=== PATIENT | male | born 1945 ===

== ENCOUNTER 2023-11-02 03:40 | Outpatient (CLI) | payer MEDICARE, BC, SELFPAY ==
[2023-11-02 10:06] LABS: Abs Immature Grans 0.02 10^3/uL (0.0-0.06); Absolute Eosinophil Count 0.14 10^3/uL (0.0-0.7); Absolute Lymphocyte Count 1.36 10^3/uL (1.2-3.4); Absolute Monocyte Count 0.93 10^3/uL (0.1-0.8); Basophils % 1.3; Eosinophils % 1.8; HCT 35.6 % (40.0-50.0); HGB 12.3 g/dL (13.5-17.5); Immature Grans % 0.3; Lymphocytes % 17.3; MCH 32.4 pg (27.0-33.0); MCHC 34.6 % (32.0-36.0); MCV 94 fL (80-95); MPV 8.8 fL (8.0-11.0); Monocytes % 11.8; Neutrophils % 67.5; Platelet Count 302 10^3/uL (130-400); RDW 13.2 % (11.8-14.1); RDW-SD 45.1 fL; WBC 7.85 10^3/uL (4.4-10.8)
[2023-11-02 10:11] LABS: ESR 6 mm/hr (0-20)
== END 2023-11-02 03:41 | disposition home or self-care (01) ==
PROVIDERS: Visit Provider Family Medicine
DX: D64.9 Anemia, unspecified (principal)
CPT/HCPCS: 36415; 85652; 85025

== ENCOUNTER 2023-11-23 03:55 | Outpatient (CLI) | payer MEDICARE, BC, SELFPAY ==
[2023-11-23 16:28] LABS: Abs Immature Grans 0.02 10^3/uL (0.0-0.06); Absolute Basophil Count 0.08 10^3/uL (0.0-0.2); Absolute Eosinophil Count 0.09 10^3/uL (0.0-0.7); Absolute Lymphocyte Count 1.69 10^3/uL (1.2-3.4); Absolute Monocyte Count 0.87 10^3/uL (0.1-0.8); Absolute Neutrophil Count 4.26 10^3/uL (1.2-6.7); Basophils % 1.1; Eosinophils % 1.3; HCT 33.4 % (40.0-50.0); HGB 11.5 g/dL (13.5-17.5); Immature Grans % 0.3; Lymphocytes % 24.1; MCH 32.9 pg (27.0-33.0); MCHC 34.4 % (32.0-36.0); MCV 95 fL (80-95); MPV 9.1 fL (8.0-11.0); Monocytes % 12.4; Neutrophils % 60.8; Platelet Count 278 10^3/uL (130-400); RDW 13.5 % (11.8-14.1); RDW-SD 47.4 fL; WBC 7.01 10^3/uL (4.4-10.8)
[2023-11-23 17:09] LABS: ALT 28 U/L (16-63); AST 36 U/L (15-37); Albumin 3.6 g/dL (3.4-5.0); Alkaline Phosphatase 86 U/L (46-116); Anion Gap 7.1 mmol/L (3-11); BUN 8 mg/dL (7-18); Bilirubin, Total 0.7 mg/dL (0.2-1.0); CO2 27.9 mmol/L (21.0-32.0); CREATININE 1.1 mg/dL (0.70-1.30); Chloride 104 mmol/L (98-107); Estimated GFR 68.29 (mL/min/1.73m2); Folate 14.8 ng/mL (8.6-20.0); Glucose 103 mg/dL (74-106); Potassium 4.5 mmol/L (3.5-5.1); Sodium 139 mmol/L (136-145); Total Protein 7.4 g/dL (6.4-8.2); Vitamin B12 352 pg/mL (193-986)
[2023-11-23 17:21] LABS: LDH 265 U/L (85-227)
[2023-11-24 10:03] LABS: Reticulocyte 1.7 % (0.5-2.4)
[2023-11-27 09:15] LABS: Haptoglobin 159 mg/dL (32-197); IgA 533 mg/dL (85-499); IgG 1237 mg/dL (610-1616); IgM 83 mg/dL (35-242); Kappa Free Light Chain 6.28 mg/dL (0.33-1.94); Lambda Free Light Chain 2.94 mg/dL (0.57-2.63)
[2023-11-27 12:18] LABS: Albumin 55.2 % (55.8-66.1); Albumin g/dL 3.9 g/dL (3.6-5.2); Total Protein 7.1 g/dL (6.3-8.2)
[2023-11-27 13:48] LABS: Erythropoietin 9.4 mIU/mL (2.6 - 18.5)
== END 2023-11-23 03:56 | disposition home or self-care (01) ==
PROVIDERS: Visit Provider Internal Medicine Hematology & Oncology
DX: D64.9 Anemia, unspecified (principal)
CPT/HCPCS: 36415; 80053; 82668; 82784; 85045; 82607; 82746; 83010; 83615; 83883; 84165; 85025

== ENCOUNTER 2024-08-20 11:22 | Outpatient (CLI) | payer MEDICARE, BC, SELFPAY ==
[2024-08-20 18:47] LABS: HBs Antibody, Quant <3.1 mIU/mL (See Note); Hepatitis B Surface Ab Negative (See Note)
[2024-08-20 18:57] LABS: Hepatitis B Surface Ag Negative (Negative)
[2024-08-20 19:30] LABS: Hepatitis C Ab w Rflx HCV PCR Negative (Negative)
[2024-08-20 19:33] LABS: Hep B Core Antibody Negative (Negative)
== END 2024-08-20 11:23 | disposition home or self-care (01) ==
LOC: LBO 11:24
PROVIDERS: Visit Provider Internal Medicine Hematology & Oncology
DX: C83.31 Diffuse large B-cell lymphoma, lymph nodes of head, face, and neck (principal); Z79.620 Long term (current) use of immunosuppressive biologic; R79.89 Other specified abnormal findings of blood chemistry
CPT/HCPCS: 36415; 86704; 86706; 86803; 87340

== ENCOUNTER 2025-06-18 03:13 | Outpatient (CLI) | payer MEDICARE, BC, SELFPAY ==
[2025-06-18 13:22] LABS: Abs Immature Grans 0.03 10^3/uL (0.0-0.06); HCT 39.0 % (40.0-50.0); HGB 13.0 g/dL (13.5-17.5); Immature Grans % 0.4 %; MCH 30.4 pg (27.0-33.0); MCHC 33.3 % (32.0-36.0); MCV 91 fL (80-95); MPV 9.1 fL (8.0-11.0); Platelet Count 227 10^3/uL (130-400); RBC 4.28 10^6/uL (4.36-5.78); RDW 13.3 % (11.8-14.1); RDW-SD 44.1 fL; WBC 7.69 10^3/uL (4.4-10.8)
[2025-06-18 13:46] LABS: ALT 19 U/L (16-63); AST 26 U/L (15-37); Albumin 3.7 g/dL (3.4-5.0); Alkaline Phosphatase 77 U/L (46-116); Anion Gap 7.4 mmol/L (3-11); BUN 14 mg/dL (7-18); Bilirubin, Total 0.5 mg/dL (0.2-1.0); CO2 27.6 mmol/L (21.0-32.0); Calcium 9.1 mg/dL (8.5-10.1); Chloride 101 mmol/L (98-107); Estimated GFR 86.34 (mL/min/1.73m2); Glucose 100 mg/dL (74-106); LDH 242 U/L (85-227); Potassium 4.1 mmol/L (3.5-5.1); Sodium 136 mmol/L (136-145); Total Protein 7.0 g/dL (6.4-8.2)
== END 2025-06-18 03:14 | disposition home or self-care (01) ==
LOC: LBO 03:14
PROVIDERS: Visit Provider Nurse Practitioner Family
DX: C83.31 Diffuse large B-cell lymphoma, lymph nodes of head, face, and neck (principal)
CPT/HCPCS: 36415; 80053; 83615; 85025